=== PATIENT | female | born 1990 | race African-American/Black ===

== ENCOUNTER 2018-01-05 19:04 | Emergency (ER) | payer MEDICAID ==
[~2018-01-05] VITALS: Ht 157.5 cm; Wt 55.0 kg
[2018-01-05 19:06] VITALS: BP 139/82
== END 2018-01-06 | disposition left against medical advice (07) ==
LOC: ER 19:32
DX: M79.1 Myalgia (principal); Z53.21 Procedure and treatment not carried out due to patient leaving prior to being seen by health care provider

== ENCOUNTER 2018-08-11 19:37 | Emergency (ER) | payer MEDICAID ==
[~2018-08-11] VITALS: Ht 157.5 cm; Wt 70.0 kg
[2018-08-11] MEDS ORDERED: ONDANSETRON HCL 4MG/2ML INJ IV STA (20:25)
[2018-08-11] MEDS ORDERED: SODIUM CHLORIDE 0.9% 1,000 ML IV ONE (20:25)
[2018-08-11 21:26] LABS: BASOPHILS % 0.7 % (0.0-2.0); EOSINOPHILS % 0.4 % (0.0-5.0); HEMATOCRIT. 46.7 % (36.0-48.0); HEMOGLOBIN. 15.1 g/dL (12.0-16.0); LYMPHOCYTES % 25.1 % (20.0-50.0); MEAN CORPUSCULAR HEMOGLOBIN 29.6 pg (28.0-32.0); MEAN PLATELET VOLUME 9.7 fl (7.4-10.4); NEUTROPHILS % 64.8 % (40.0-76.0); PLATELET 294 x1000/uL (130-400); RED BLOOD CELL COUNT 5.08 mill/uL (4.2-5.4); RED CELL DISTRIBUTION WIDTH 13.7 % (11.6-14.6)
[2018-08-11 21:27] LABS: CHLORIDE 104 mEq/L (98-107)
[2018-08-11 21:30] LABS: ETHANOL BLOOD < 10 mg/dL
[2018-08-11 21:30] LABS: *AMPHETAMINES SCREEN URINE NEGATIVE (NEGATIVE); *BARBITURATES SCREEN URINE NEGATIVE (NEGATIVE); *BENZODIAZEPINES SCREEN URINE NEGATIVE (NEGATIVE); *COCAINE SCREEN URINE NEGATIVE (NEGATIVE); METHADONE URINE SCREEN NEGATIVE (NEGATIVE); OPIATES URINE SCREEN NEGATIVE (NEGATIVE)
[2018-08-11 21:31] LABS: PHENCYCLIDINE URINE SCREEN NEGATIVE (NEGATIVE)
[2018-08-11 21:36] LABS: CANNABINOID URINE SCREEN PRESUMTIVE POSITIVE (NEGATIVE)
[2018-08-12 04:31] VITALS: BP 122/69
== END 2018-08-12 04:34 | disposition home or self-care (01) ==
LOC: ER 19:37
DX: T40.7X1A Poisoning by cannabis (derivatives), accidental (unintentional), initial encounter (principal); G93.40 Encephalopathy, unspecified; F17.200 Nicotine dependence, unspecified, uncomplicated; J45.909 Unspecified asthma, uncomplicated; R11.2 Nausea with vomiting, unspecified; Y92.89 Other specified places as the place of occurrence of the external cause
CPT/HCPCS: 36415; 80053; 80305; 81025; 85025; 93005; 96361; 96374; 99284; G0482; J2405; J7030

== ENCOUNTER 2018-11-15 18:15 | Emergency (ER) | payer MEDICAID ==
[~2018-11-15] VITALS: Ht 160 cm; Wt 58.0 kg
[2018-11-15] MEDS ORDERED: SODIUM CHLORIDE 0.9% 1,000 ML IV ONE (19:02)
[2018-11-15 19:57] LABS: OPIATES URINE SCREEN NEGATIVE (NEGATIVE); PHENCYCLIDINE URINE SCREEN NEGATIVE (NEGATIVE)
[2018-11-15 19:58] LABS: *AMPHETAMINES SCREEN URINE NEGATIVE (NEGATIVE); *BARBITURATES SCREEN URINE NEGATIVE (NEGATIVE); *BENZODIAZEPINES SCREEN URINE NEGATIVE (NEGATIVE); *COCAINE SCREEN URINE NEGATIVE (NEGATIVE); METHADONE URINE SCREEN NEGATIVE (NEGATIVE)
[2018-11-15 20:00] LABS: CHLORIDE 107 mEq/L (98-107)
[2018-11-15 20:00] LABS: CANNABINOID URINE SCREEN PRESUMTIVE POSITIVE (NEGATIVE)
[2018-11-15 20:02] LABS: HCG SCREEN NEGATIVE
[2018-11-15 20:04] LABS: ETHANOL BLOOD < 10 mg/dL
[2018-11-15 20:09] LABS: BASOPHILS % 0.7 % (0.0-2.0); EOSINOPHILS % 1.1 % (0.0-5.0); HEMATOCRIT. 40.8 % (36.0-48.0); HEMOGLOBIN. 13.2 g/dL (12.0-16.0); LYMPHOCYTES % 39.2 % (20.0-50.0); MEAN CORPUSCULAR HEMOGLOBIN 29.9 pg (28.0-32.0); MEAN CORPUSCULAR VOLUME 92.2 fL (81.0-99.0); MEAN PLATELET VOLUME 10.1 fl (7.4-10.4); MONOCYTES % 9.1 % (2.0-8.0); NEUTROPHILS % 49.9 % (40.0-76.0); PLATELET 181 x1000/uL (130-400); RED BLOOD CELL COUNT 4.43 mill/uL (4.2-5.4); RED CELL DISTRIBUTION WIDTH 14.4 % (11.6-14.6)
[2018-11-15 20:37] VITALS: BP 125/79
== END 2018-11-15 21:02 | disposition home or self-care (01) ==
LOC: ER 18:15
DX: G92 Toxic encephalopathy (principal); J45.909 Unspecified asthma, uncomplicated
CPT/HCPCS: 36415; 80048; 80305; 80307; 80320; 80329; 81025; 84703; 85025; 99283; J7030; G0480

== ENCOUNTER 2019-05-10 13:51 | Emergency (ER) | payer MEDICAID ==
[~2019-05-10] VITALS: Ht 160 cm; Wt 69.0 kg
[2019-05-10 15:52] VITALS: BP 117/80
== END 2019-05-10 17:23 | disposition home or self-care (01) ==
LOC: ER 13:51
DX: F12.921 Cannabis use, unspecified with intoxication delirium (principal); J45.909 Unspecified asthma, uncomplicated
CPT/HCPCS: 99283

== ENCOUNTER 2019-05-31 19:58 | Emergency (ER) | payer MEDICAID ==
[~2019-05-31] VITALS: Ht 152.4 cm; Wt 59.0 kg
[2019-05-31] MEDS ORDERED: SODIUM CHLORIDE 0.9% 1,000 ML IV ONE (20:52)
[2019-05-31 21:33] LABS: BASOPHILS % 0.3 % (0.0-2.0); HEMATOCRIT. 41.7 % (36.0-48.0); HEMOGLOBIN. 13.8 g/dL (12.0-16.0); LYMPHOCYTES % 43.8 % (20.0-50.0); MEAN CORPUSCULAR HEMOGLOBIN 29.8 pg (28.0-32.0); MEAN CORPUSCULAR VOLUME 90.6 fL (81.0-99.0); MEAN PLATELET VOLUME 9.8 fl (7.4-10.4); MONOCYTES % 9.3 % (2.0-8.0); NEUTROPHILS % 45.6 % (40.0-76.0); PLATELET 214 x1000/uL (130-400); RED BLOOD CELL COUNT 4.61 mill/uL (4.2-5.4); RED CELL DISTRIBUTION WIDTH 14.9 % (11.6-14.6)
[2019-05-31 21:38] LABS: CHLORIDE 108 mEq/L (98-107)
[2019-05-31 21:42] LABS: PROTHROMBIN TIME 10.6 sec (9.6-11.0)
[2019-05-31 21:42] LABS: CLARITY URINE CLEAR (CLEAR); COLOR URINE YELLOW (YELLOW); KETONES URINE TRACE (NEGATIVE); LEUKOCYTE ESTERASE URINE 2+ (NEGATIVE); NITRITE URINE NEGATIVE (NEGATIVE); OCCULT BLOOD URINE NEGATIVE (NEGATIVE); PROTEIN URINE TRACE (NEGATIVE); SPECIFIC GRAVITY URINE 1.026 (1.005-1.030)
[2019-05-31 21:43] LABS: ETHANOL BLOOD < 10 mg/dL
[2019-05-31 21:58] LABS: *BARBITURATES SCREEN URINE NEGATIVE (NEGATIVE); *BENZODIAZEPINES SCREEN URINE NEGATIVE (NEGATIVE); *COCAINE SCREEN URINE NEGATIVE (NEGATIVE); METHADONE URINE SCREEN NEGATIVE (NEGATIVE); OPIATES URINE SCREEN NEGATIVE (NEGATIVE); PHENCYCLIDINE URINE SCREEN NEGATIVE (NEGATIVE)
[2019-05-31 22:00] LABS: *AMPHETAMINES SCREEN URINE NEGATIVE (NEGATIVE)
[2019-05-31 22:02] LABS: CANNABINOID URINE SCREEN PRESUMTIVE POSITIVE (NEGATIVE)
[2019-06-01 19:05] VITALS: BP 137/74
== END 2019-06-01 19:07 | disposition home or self-care (01) ==
LOC: ER 19:58
DX: F19.10 Other psychoactive substance abuse, uncomplicated (principal); F17.200 Nicotine dependence, unspecified, uncomplicated
CPT/HCPCS: 36415; 80053; 80305; 80320; 81003; 85025; 85610; 93005; 99284; J7030; G0480

== ENCOUNTER 2020-01-23 07:29 | Emergency (ER) | payer MEDICAID ==
[~2020-01-23] VITALS: Ht 162.6 cm; Wt 70.0 kg
[2020-01-23] MEDS ORDERED: SODIUM CHLORIDE 0.9% 1,000 ML IV ONE (08:14)
[2020-01-23 08:28] LABS: EOSINOPHILS % 0.7 % (0.0-5.0); HEMATOCRIT. 40.2 % (36.0-48.0); HEMOGLOBIN. 13.3 g/dL (12.0-16.0); LYMPHOCYTES % 34.5 % (20.0-50.0); MEAN CORPUSCULAR VOLUME 90.7 fL (81.0-99.0); MONOCYTES % 6.3 % (2.0-8.0); NEUTROPHILS % 57.5 % (40.0-76.0); PLATELET 225 x1000/uL (130-400); RED BLOOD CELL COUNT 4.43 mill/uL (4.2-5.4); RED CELL DISTRIBUTION WIDTH 14.6 % (11.6-14.6)
[2020-01-23 08:34] LABS: CHLORIDE 112 mEq/L (98-107)
[2020-01-23 08:38] LABS: ETHANOL BLOOD < 10 mg/dL
[2020-01-23 09:18] LABS: HCG SCREEN NEGATIVE
[2020-01-23 10:11] VITALS: BP 126/70
[2020-01-23] MEDS ORDERED: POTASSIUM CHLORIDE 20MEQ TABLET SR PO ONE (10:15)
[2020-01-23 11:08] LABS: *AMPHETAMINES SCREEN URINE NEGATIVE (NEGATIVE)
[2020-01-23 11:09] LABS: *BARBITURATES SCREEN URINE NEGATIVE (NEGATIVE); *BENZODIAZEPINES SCREEN URINE NEGATIVE (NEGATIVE); *COCAINE SCREEN URINE NEGATIVE (NEGATIVE); METHADONE URINE SCREEN NEGATIVE (NEGATIVE); OPIATES URINE SCREEN NEGATIVE (NEGATIVE); PHENCYCLIDINE URINE SCREEN NEGATIVE (NEGATIVE)
[2020-01-23 11:11] LABS: CANNABINOID URINE SCREEN PRESUMTIVE POSITIVE (NEGATIVE)
== END 2020-01-23 11:24 | disposition home or self-care (01) ==
LOC: ER 07:29
DX: R41.82 Altered mental status, unspecified (principal); F12.10 Cannabis abuse, uncomplicated; F19.10 Other psychoactive substance abuse, uncomplicated; J45.909 Unspecified asthma, uncomplicated; R00.0 Tachycardia, unspecified; F17.200 Nicotine dependence, unspecified, uncomplicated
CPT/HCPCS: 36415; 80053; 80305; 80320; 84703; 85025; 93005; 96360; 99284; J7030; G0480

== ENCOUNTER 2020-04-07 15:24 | Inpatient (IN) | payer MEDICAID ==
[~2020-04-07] VITALS: Ht 154.9 cm; Wt 59.0 kg
[2020-04-07] MEDS ORDERED: ALBUTEROL (0.083%) 2.5MG/3ML NEB HHN STA (15:50)
[2020-04-07] MEDS ORDERED: IPRATROPIUM BROMIDE (0.02%) 0.5MG/2.5ML NEB HHN STA (15:50)
[2020-04-07] MEDS ORDERED: LORAZEPAM 2MG/ML CPJ IV STA (15:50)
[2020-04-07] MEDS ORDERED: SODIUM CHLORIDE 0.9% 1,000 ML IV ONE (15:50)
[2020-04-07] MEDS ORDERED: METHYLPREDNISOLONE SOD SUCC 125 MG/2 ML VIAL IV ONE (16:00)
[2020-04-07 16:08] LABS: EOSINOPHILS % 0.7 % (0.0-5.0); HEMATOCRIT. 43.3 % (36.0-48.0); HEMOGLOBIN. 14.4 g/dL (12.0-16.0); LYMPHOCYTES % 26.2 % (20.0-50.0); MEAN CORPUSCULAR HEMOGLOBIN 30.3 pg (28.0-32.0); MEAN CORPUSCULAR VOLUME 90.8 fL (81.0-99.0); MEAN PLATELET VOLUME 10.2 fl (7.4-10.4); NEUTROPHILS % 65.1 % (40.0-76.0); PLATELET 228 x1000/uL (130-400); RED BLOOD CELL COUNT 4.77 mill/uL (4.2-5.4); RED CELL DISTRIBUTION WIDTH 14.6 % (11.6-14.6)
[2020-04-07 16:25] LABS: HCG SCREEN NEGATIVE
[2020-04-07 16:34] LABS: CHLORIDE 131 mEq/L (98-107)
[2020-04-07 16:38] LABS: ETHANOL BLOOD < 10 mg/dL
[2020-04-07] MEDS ORDERED: CALCIUM GLUCONATE 1,000 MG in DEXTROSE 5% WATER 50 ML IV ONE (17:15)
[2020-04-07 17:38] LABS: *BARBITURATES SCREEN URINE NEGATIVE (NEGATIVE)
[2020-04-07 17:39] LABS: *AMPHETAMINES SCREEN URINE NEGATIVE (NEGATIVE); *BENZODIAZEPINES SCREEN URINE NEGATIVE (NEGATIVE); *COCAINE SCREEN URINE NEGATIVE (NEGATIVE); METHADONE URINE SCREEN NEGATIVE (NEGATIVE); OPIATES URINE SCREEN NEGATIVE (NEGATIVE); PHENCYCLIDINE URINE SCREEN NEGATIVE (NEGATIVE)
[2020-04-07 17:42] LABS: CANNABINOID URINE SCREEN PRESUMTIVE POSITIVE (NEGATIVE)
[2020-04-07] MEDS ORDERED: DEXTROSE 50% WATER 50ML SYRINGE IV ONE (19:00)
[2020-04-08] MEDS ORDERED: ONDANSETRON HCL 4MG/2ML INJ IV PRN (09:15)
[2020-04-08] MEDS ORDERED: ACETAMINOPHEN 325MG TABLET PO PRN (09:15)
[2020-04-08] MEDS: METHYLPREDNISOLONE SOD SUCC 40 MG/ML VIAL IV SCH ×3 (09:30→21:16)
[2020-04-08 12:00] VITALS: BP 137/84
[2020-04-08 12:06] VITALS: BP 137/84
[2020-04-08 16:01] LABS: CHLORIDE 111 mEq/L (98-107)
[2020-04-08 16:13] VITALS: BP 134/74
[2020-04-08] MEDS: IPRATROPIUM BROMIDE (0.02%) 0.5MG/2.5ML NEB HHN SCH ×3 (16:30→21:30)
[2020-04-08 20:21] VITALS: BP 106/62
[2020-04-09 00:27] VITALS: BP 103/51
[2020-04-09] MEDS: IPRATROPIUM BROMIDE (0.02%) 0.5MG/2.5ML NEB HHN SCH ×4 (00:31→13:02)
[2020-04-09 04:00] VITALS: BP 105/63
[2020-04-09] MEDS: METHYLPREDNISOLONE SOD SUCC 40 MG/ML VIAL IV SCH ×2 (05:58→14:00)
[2020-04-09 08:19] VITALS: BP 134/74
[2020-04-09 12:14] VITALS: BP 117/70
[2020-04-09] MEDS ORDERED: P20 MT (15:08)
[2020-04-09] MEDS ORDERED: FLUT1DIS3 INH (15:08)
[2020-04-09] MEDS ORDERED: ALBU18HF2 IH (15:08)
[2020-04-09 16:07] VITALS: BP 124/75
[2020-04-09 17:20] VITALS: BP 120/74
== END 2020-04-09 18:15 | disposition home or self-care (01) | DRG 144 ==
LOC: ER 15:24 → MICUSO 17:59 → 6WST 04-08 10:28
PROVIDERS: ADMIT Internal Medicine; ATTEND Internal Medicine
DX: J68.0 Bronchitis and pneumonitis due to chemicals, gases, fumes and vapors (principal); J96.00 Acute respiratory failure, unspecified whether with hypoxia or hypercapnia; E43 Unspecified severe protein-calorie malnutrition; G93.41 Metabolic encephalopathy; E83.51 Hypocalcemia; E87.0 Hyperosmolality and hypernatremia; F16.90 Hallucinogen use, unspecified, uncomplicated; F12.90 Cannabis use, unspecified, uncomplicated; F17.210 Nicotine dependence, cigarettes, uncomplicated; Z71.6 Tobacco abuse counseling; Z68.24 Body mass index [BMI] 24.0-24.9, adult
CPT/HCPCS: 36415; 71045; 80048; 80053; 80305; 80320; 82962; 84703; 85025; 93005; 94640; 96374; 99285; J0610; J2060; J2920; J2930; J7030; J7060; G0480